=== PATIENT | male | born 1980 | race African-American/Black ===

== ENCOUNTER 2016-09-17 13:50 | Emergency (ER) | payer MEDICARE, BC, OTHER ==
[~2016-09-17] VITALS: Ht 180.3 cm; Wt 86.8 kg
[~2016-09-17 13:50] MED LIST: ADAL1INJ SQ; CELE20TA PO; FLOR250C PO; IRONCAP2 PO; PROM25SU8 PO; PROT40TA PO; RISP3TAB23 PO; VITA-13 PO; [UNRECOGNIZED DRUG - CODE] PR
[2016-09-17 14:05] VITALS: BP 107/65; PULSE 99; RESP 18; TEMP 99.5; O2SAT 100
[2016-09-17] MEDS ORDERED: FERR325T8 PO (14:11)
[2016-09-17] MEDS ORDERED: SIMP50IN SQ (14:11)
[2016-09-17] MEDS ORDERED: FLOR250C PO (14:11)
[2016-09-17] MEDS ORDERED: PROT40TA PO (14:11)
[2016-09-17] MEDS ORDERED: RISP3 PO (14:11)
[2016-09-17] MEDS ORDERED: CITA20TA4 PO (14:11)
--- NOTE | 2016-09-17 14:28 | PD ---
HPI Chief Complaint: Headache Time Seen by Provider: 14:18 Travel History International Travel<30 days: No Contact w/Intl Traveler<30days: No Traveled to known affect area: No History of Present Illness HPI 36-year-old male was brought in by mother for being overheated and headache and poor appetite. Patient's mother states that patient has history of developmentally delay. Patient also has history of seizure, depression, GERD, schizophrenia, colitis and autism. She and was outside today in the heat and moderate states that he probably got overheated. Patient states that he has mild aching headache in frontal head. Patient denies any visual change. Patient denies any neck pain. Patient denies any chest pain or shortness of breath. Patient denies abdominal pain. Patient denies any nausea vomiting diarrhea. Patient's mother states the patient is feeling warm. Patient's mother states the patient has been taking medications as directed. Patient's mother states that no history of alcohol or drug abuse. PFSH Past Medical History Hx Anticoagulant Therapy: No Arthritis: Yes (L hip) Anxiety: No Depression: Yes Cancer: No Cardiovascular Problems: No Chemotherapy: No Cerebrovascular Accident: No Developmental Delay: Yes Diabetes: No Diminished Hearing: No Endocrine: No GERD: Yes Genitourinary: No Immune Disorder: No Implanted Vascular Access Dvce: No Neurologic: Yes (ORGANIC BRAIN INJURY) Psychiatric: Yes (AUTISM) Reproductive: No Respiratory: No Immunizations Current: Yes Schizophrenia: Yes Seizures: Yes ( CHILD) Ulcer: Yes ?: Not Past Surgical History Pacemaker: No Other Surgery: No Social History Alcohol Use: No Tobacco Use: No Substance Use: No Allergies-Medications (Allergen,Severity, Reaction): Coded Allergies: Flu Vaccine (Unverified Allergy, Severe, RASH, 09/17/16) Uncoded Allergies: 5-asa products-fever, diarrhe (Adverse Reaction, Intermediate, Fever, ) . Reported Meds & Prescriptions Reported Meds & Active Scripts Active Reported Simponi Inj (Golimumab) 50 Mg/0.5 Ml Syr 50 Mg SQ Q30D Protonix (Pantoprazole Sodium) 40 Mg Tab 40 Mg PO DAILY Citalopram (Citalopram Hydrobromide) 20 Mg Tab 20 Mg PO DAILY Risperdal (Risperidone) 3 Mg Tab 3 Mg PO Q12HR Florastor (Saccharomyces Boulardii) 250 Mg Cap 250 Mg PO DAILY Ferrous Sulfate 325 Mg (65 Mg Iron) Tablet 325 Mg PO BIDPC Review of Systems General / Constitutional: No: Fever Eyes: No: Visual changes HENT: No: Headaches Cardiovascular: No: Chest Pain or Discomfort Respiratory: No: Shortness of Breath Gastrointestinal: No: Abdominal Pain Genitourinary: No: Dysuria Musculoskeletal: No: Pain Skin: No Rash Neurologic: No: Weakness Psychiatric: No: Depression Endocrine: No: Polydipsia Hematologic/Lymphatic: No: Easy Bruising Physical Exam Narrative GENERAL: Well-nourished, well-developed patient. SKIN: Focused skin assessment warm/dry. HEAD: Normocephalic. EYES: No scleral icterus. No injection or drainage. Pupils 3 mm equal reactive. NECK: Supple, trachea midline. No JVD or lymphadenopathy. CARDIOVASCULAR: Regular rate and rhythm without murmurs, gallops, or rubs. RESPIRATORY: Breath sounds equal bilaterally. No accessory muscle use. GASTROINTESTINAL: Abdomen soft, non-tender, nondistended. MUSCULOSKELETAL: No cyanosis, or edema. BACK: Nontender without obvious deformity. No CVA tenderness. Neurologic exam: Patient is awake and alert oriented to person. Patient moves all extremity well. No obvious focal neurological deficit. Data Data Last Documented VS Vital Signs Date Time Temp Pulse Resp B/P Pulse Ox O2 Delivery O2 Flow Rate FiO2 09/17/16 14:32 95 18 119/69 98 Room Air 09/17/16 14:05 99.5 Orders Complete Blood Count With Diff (09/17/16 14:21) Basic Metabolic Panel (Bmp) (09/17/16 14:21) Iv Access Insert/Monitor (09/17/16 14:21) Ecg Monitoring (09/17/16 14:21) Oximetry (09/17/16 14:21) Sodium Chlor 0.9% 1000 Ml Inj (Ns 1000 M (09/17/16 14:30) Labs Laboratory Tests Test 09/17/16 14:15 White Blood Count 10.8 TH/MM3 Red Blood Count 5.28 MIL/MM3 Hemoglobin 14.7 GM/DL Hematocrit 43.5 % Mean Corpuscular Volume 82.4 FL Mean Corpuscular Hemoglobin 27.9 PG Mean Corpuscular Hemoglobin 33.8 % Concent Red Cell Distribution Width 13.0 % Platelet Count 138 TH/MM3 Mean Platelet Volume 11.1 FL Neutrophils (%) (Auto) 86.4 % Lymphocytes (%) (Auto) 5.8 % Monocytes (%) (Auto) 6.6 % Eosinophils (%) (Auto) 0.7 % Basophils (%) (Auto) 0.5 % Neutrophils # (Auto) 9.3 TH/MM3 Lymphocytes # (Auto) 0.6 TH/MM3 Monocytes # (Auto) 0.7 TH/MM3 Eosinophils # (Auto) 0.1 TH/MM3 Basophils # (Auto) 0.1 TH/MM3 CBC Comment DIFF FINAL Differential Comment Sodium Level 139 MEQ/L Potassium Level 4.1 MEQ/L Chloride Level 104 MEQ/L Carbon Dioxide Level 27.8 MEQ/L Anion Gap 7 MEQ/L Blood Urea Nitrogen 13 MG/DL Creatinine 1.20 MG/DL Estimat Glomerular Filtration 84 ML/MIN Rate Random Glucose 97 MG/DL Calcium Level 8.3 MG/DL MDM Medical Decision Making Medical Screen Exam Complete: Yes Emergency Medical Condition: Yes Interpretation(s) 15 12 PM. BMP within normal limit. Differential Diagnosis Differential diagnosis including his exhaustion, electrolyte abnormality, dehydration, viral syndrome. Narrative Course 36-year-old male with possible heat related illness. Patient's out in the heat all day today. Patient states the headache is mild headache and poor appetite. Normal saline solution 1 L IV bolus. Diagnosis Primary Impression: Heat exhaustion Qualified Code: T67.5XXA - Heat exhaustion, initial encounter Patient Instructions: General Instructions Additional Instructions: Encourage by mouth fluid. Rest in cool place. Follow-up with personal physician. Return as needed. Med/Other Pt SpecificInfo: No Change to Meds Disposition: 01 DISCHARGE HOME Condition: Stable Mckay Madden MD Sep 17, 2016 14:28
[2016-09-17] MEDS ORDERED: SODIUM CHLOR 0.9% 1000 ML INJ 1,000 ML IV ONE (14:30)
[2016-09-17 14:32] VITALS: BP 119/69; PULSE 95; RESP 18; O2SAT 98
[2016-09-17 14:42] LABS: AUTOMATED NEUTROPHIL # 9.3 TH/MM3 (1.8-7.7); BASOPHIL # 0.1 TH/MM3 (0-0.2); BASOPHIL % 0.5 % (0.0-2.0); EOSINOPHIL # 0.1 TH/MM3 (0-0.4); EOSINOPHIL % 0.7 % (0.0-4.0); HEMATOCRIT 43.5 % (39.0-51.0); LYMPH % 5.8 % (9.0-44.0); LYMPHOCYTE # 0.6 TH/MM3 (1.0-4.8); MEAN CELL VOLUME 82.4 FL (80.0-100.0); MEAN CORPUSCULAR HEMOGLOBIN 27.9 PG (27.0-34.0); MEAN CORPUSCULAR HGB CONC 33.8 % (32.0-36.0); MONO % 6.6 % (0.0-8.0); NEUT % 86.4 % (16.0-70.0); PLATELET COUNT 138 TH/MM3 (150-450); RED BLOOD COUNT 5.28 MIL/MM3 (4.50-5.90); WHITE BLOOD COUNT 10.8 TH/MM3 (4.0-11.0)
[2016-09-17 14:55] LABS: POTASSIUM 4.1 MEQ/L (3.5-5.1)
[2016-09-17 14:59] LABS: BICARBONATE 27.8 MEQ/L (21.0-32.0)
[2016-09-17 15:15] LABS: HEMO FLAGS DIFF FINAL
== END 2016-09-17 15:45 | disposition home or self-care (01) ==
LOC: PHED 13:50
DX: T67.5XXA Heat exhaustion, unspecified, initial encounter (principal)
CPT/HCPCS: 80048; 85025; 96360; 99284; J7030